=== PATIENT | female | born 1965 | race Caucasian/White ===

== ENCOUNTER → 2024-01-27 18:52 | Outpatient (REF) | payer OTHER, SELFPAY | LOC: MRI 3T 18:52 | PROVIDERS: ATTENDING PHYSICIAN Otolaryngology Facial Plastic Surgery; FAMILY PHYSICIAN Family Medicine | DX: H90.3 Sensorineural hearing loss, bilateral (principal); H90.A22 Sensorineural hearing loss, unilateral, left ear, with restricted hearing on the contralateral side | CPT/HCPCS: 70553; A9575 ==